=== PATIENT | male | born 1955 ===

== ENCOUNTER 2021-12-13 14:47 | Inpatient (IN) ==
[2021-12-13 16:07] LABS: Basophils % 0.4 %; Eosinophils # 0.2 K/mcL (0.0-0.6); Hematocrit 42.1 % (37.5-50.1); Hemoglobin 12.8 g/dL (12.9-16.9); Immature Granulocytes % 0.3 % (0-4); Lymphocytes % 13.2 %; Mean Corpuscular HGB Conc 30.4 g/dL (31.6-35.5); Mean Corpuscular Hemoglobin 25.7 pg (28.0-33.3); Mean Corpuscular Volume 84.5 fL (83.0-100.0); Mean Platelet Volume 10.6 fL (9.4-12.4); Monocytes % 12.6 %; Neutrophils # 5.5 K/mcL (1.6-8.9); Platelet Count 141 K/mcL (140-400); Red Blood Count 4.98 M/mcL (4.19-5.50); Red Cell Distribution Width 22.4 % (11.5-14.5); Segmented Neutrophils % 71.5 %; White Blood Count 7.7 K/mcL (4.3-11.1)
[2021-12-13 16:25] LABS: Calcium 8.6 mg/dL (8.6-10.3); Potassium 4.3 mEq/L (3.5-5.1)
[2021-12-13 18:41] LABS: INR 1.7; Prothrombin Time 18.9 Seconds (9.4-12.1)
[2021-12-13 18:44] LABS: Activated Partial Thrombo Time 46.4 Seconds (26.0-36.0)
[2021-12-13] MEDS ORDERED: Furosemide 20 MG/2 ML VIAL IVP ONE (21:08)
[2021-12-13] MEDS ORDERED: Naloxone 0.4 MG/ML INJ IVP PRN (21:27)
[2021-12-13] MEDS ORDERED: *HR* Dextrose 50 % in Water (Syg) 50 ML SYRINGE IVP PRN (21:38)
[2021-12-13] MEDS ORDERED: D5% in Water 1,000 ML IVC PRN (21:38)
[2021-12-13] MEDS ORDERED: Dextrose 4 GM Chewable Tablets PO PRN ×2 (21:38)
[2021-12-14] MEDS ORDERED: Furosemide 20 MG/2 ML VIAL IVP ONE (00:08)
[2021-12-14] MEDS: Insulin LISPRO 300 UNITS/3 ML VIAL SUBQ SCH ×4 (00:13→17:09)
[2021-12-14 02:18] LABS: Hematocrit 39.3 % (37.5-50.1); Hemoglobin 12.2 g/dL (12.9-16.9); Mean Corpuscular Volume 83.8 fL (83.0-100.0); Mean Platelet Volume 10.9 fL (9.4-12.4); Platelet Count 147 K/mcL (140-400); Red Blood Count 4.69 M/mcL (4.19-5.50)
[2021-12-14 02:23] LABS: INR 1.9; Prothrombin Time 21.1 Seconds (9.4-12.1)
[2021-12-14 02:39] LABS: Calcium 8.4 mg/dL (8.6-10.3); Potassium 4.6 mEq/L (3.5-5.1)
[2021-12-14] MEDS: Gabapentin 300 MG CAPSULE PO SCH ×3 (08:32→20:36)
[2021-12-14] MEDS: hydrALAZINE 25 MG TABLET PO SCH ×3 (08:33→20:36)
[2021-12-14] MEDS: amLODIPine 5 MG TABLET PO SCH (08:33)
[2021-12-14 08:48] LABS: Estimated Average Glucose 183 mg/dl
[2021-12-14] MEDS ORDERED: (Ezetimibe [Zetia] 10 MG Tablet) PO SCH (09:00)
[2021-12-14] MEDS ORDERED: Furosemide 40 MG/4 ML VIAL IVP SCH ×2 (09:00→17:00)
[2021-12-14] MEDS ORDERED: Metoprolol 100 MG TABLET PO SCH (09:00)
[2021-12-14 09:18] LABS: Magnesium 1.8 mg/dL (1.6-2.6)
[2021-12-14] MEDS: Isosorbide MONOnitrate (24 HR) 60 MG TAB.ER.24H PO SCH (12:40)
[2021-12-14] MEDS: Albumin 25% 25gram/100mL 25 GM/100 ML IV.SOLN IVPB SCH ×2 (12:41→20:35)
[2021-12-14 13:26] LABS: Bilirubin,Urine Negative (Negative); Blood,Urine Negative (Negative); Clarity,Urine Clear (Clear); Color,Urine Light-Yellow (Yellow); Glucose,Urine (UA) Normal (Normal); Hyaline Casts,Urine Few per lpf (None Seen); Ketones,Urine Negative (Negative); Leukocyte Esterase,Urine Negative (Negative); Nitrite,Urine Negative (Negative); PH,Urine 5.5 pH Units (5.0-8.0); Protein,Urine 50 mg/dL (Neg-Trace); RBC,Urine 0-3 per hpf (0-3); Specific Gravity,Urine 1.011 (1.010-1.025); Urobilinogen,Urine Normal (Normal)
[2021-12-14 13:32] LABS: Sodium, Urine 102.1 mEq/L
[2021-12-14] MEDS: Furosemide 240 MG in 0.9 % Sodium Chloride 96 ML IVC SCH (14:20)
[2021-12-14] MEDS ORDERED: *HR* Warfarin 5 MG TABLET PO ONE (18:00)
[2021-12-14] MEDS ORDERED: Warfarin perPT PO PRN (18:00)
[2021-12-14] MEDS: Metoprolol XL (24 HR) Succ 50 MG TAB.ER.24H PO SCH (20:36)
[2021-12-14] MEDS: Insulin DETEMIR 100 UNIT/ML X5UNITS SUBQ SCH (20:37)
[2021-12-14] MEDS ORDERED: NON-FORMULARY MEDICATION 1 EACH EACH (Metoprolol Succinate [Toprol Xl] 100 MG Tab.Er.24h) PO SCH (21:00)
[2021-12-15] MEDS: Albumin 25% 25gram/100mL 25 GM/100 ML IV.SOLN IVPB SCH ×3 (03:11→20:08)
[2021-12-15 05:36] LABS: Hemoglobin 11.9 g/dL (12.9-16.9); Immature Granulocytes % 0.3 % (0-4)
[2021-12-15 05:39] LABS: Basophils % 0.4 %; Eosinophils # 0.2 K/mcL (0.0-0.6); Eosinophils % 2.7 %; Hematocrit 38.9 % (37.5-50.1); Immature Platelets 6.7 % (1.1-6.1); Lymphocytes # 0.9 K/mcL (0.6-4.6); Mean Corpuscular HGB Conc 30.6 g/dL (31.6-35.5); Mean Corpuscular Hemoglobin 25.8 pg (28.0-33.3); Mean Corpuscular Volume 84.2 fL (83.0-100.0); Mean Platelet Volume 11.1 fL (9.4-12.4); Monocytes # 0.9 K/mcL (0.0-1.3); Monocytes % 13.5 %; Neutrophils # 4.8 K/mcL (1.6-8.9); Platelet Count 140 K/mcL (140-400); Red Blood Count 4.62 M/mcL (4.19-5.50); Red Cell Distribution Width 22.3 % (11.5-14.5); Segmented Neutrophils % 70.1 %; White Blood Count 6.9 K/mcL (4.3-11.1)
[2021-12-15 05:43] LABS: INR 1.8; Prothrombin Time 19.8 Seconds (9.4-12.1)
[2021-12-15 05:47] LABS: Magnesium 1.9 mg/dL (1.6-2.6); Phosphorous 4.5 mg/dL (2.7-4.5); Potassium 4.6 mEq/L (3.5-5.1)
[2021-12-15] MEDS: amLODIPine 5 MG TABLET PO SCH (08:54)
[2021-12-15] MEDS: Isosorbide MONOnitrate (24 HR) 60 MG TAB.ER.24H PO SCH (08:54)
[2021-12-15] MEDS: calcitrioL 0.25 MCG CAPSULE PO SCH (08:54)
[2021-12-15] MEDS: Gabapentin 300 MG CAPSULE PO SCH ×3 (08:54→20:38)
[2021-12-15] MEDS: hydrALAZINE 25 MG TABLET PO SCH ×3 (08:55→20:39)
[2021-12-15] MEDS: Insulin DETEMIR 100 UNIT/ML X5UNITS SUBQ SCH ×2 (08:55→20:38)
[2021-12-15] MEDS: Metoprolol XL (24 HR) Succ 50 MG TAB.ER.24H PO SCH ×2 (08:55→20:38)
[2021-12-15] MEDS: Insulin LISPRO 300 UNITS/3 ML VIAL SUBQ SCH ×3 (08:56→15:51)
[2021-12-15] MEDS ORDERED: metOLazone 5 MG TABLET PO SCH (09:00)
[2021-12-15] MEDS: Furosemide 240 MG in 0.9 % Sodium Chloride 96 ML IVC SCH (12:56)
[2021-12-15] MEDS ORDERED: *HR* Warfarin 5 MG TABLET PO ONE (18:00)
[2021-12-16 03:22] LABS: INR 1.9; Prothrombin Time 21.6 Seconds (9.4-12.1)
[2021-12-16 03:24] LABS: Basophils % 0.6 %; Eosinophils # 0.2 K/mcL (0.0-0.6); Eosinophils % 2.7 %; Hematocrit 37.6 % (37.5-50.1); Hemoglobin 11.6 g/dL (12.9-16.9); Immature Granulocytes % 0.3 % (0-4); Lymphocytes # 0.8 K/mcL (0.6-4.6); Lymphocytes % 11.7 %; Mean Corpuscular HGB Conc 30.9 g/dL (31.6-35.5); Mean Corpuscular Hemoglobin 26.3 pg (28.0-33.3); Mean Corpuscular Volume 85.3 fL (83.0-100.0); Mean Platelet Volume 10.3 fL (9.4-12.4); Monocytes # 0.8 K/mcL (0.0-1.3); Monocytes % 12.1 %; Neutrophils # 4.9 K/mcL (1.6-8.9); Platelet Count 116 K/mcL (140-400); Red Blood Count 4.41 M/mcL (4.19-5.50); Red Cell Distribution Width 21.8 % (11.5-14.5); Segmented Neutrophils % 72.6 %; White Blood Count 6.8 K/mcL (4.3-11.1)
[2021-12-16 03:33] LABS: Calcium 8.7 mg/dL (8.6-10.3); Magnesium 1.8 mg/dL (1.6-2.6); Phosphorous 4.6 mg/dL (2.7-4.5); Potassium 4.5 mEq/L (3.5-5.1)
[2021-12-16] MEDS: Albumin 25% 25gram/100mL 25 GM/100 ML IV.SOLN IVPB SCH (04:41)
[2021-12-16] MEDS: Insulin LISPRO 300 UNITS/3 ML VIAL SUBQ SCH ×3 (08:42→17:58)
[2021-12-16] MEDS: calcitrioL 0.25 MCG CAPSULE PO SCH (08:57)
[2021-12-16] MEDS: Metoprolol XL (24 HR) Succ 50 MG TAB.ER.24H PO SCH ×2 (08:57→20:01)
[2021-12-16] MEDS: amLODIPine 5 MG TABLET PO SCH (08:57)
[2021-12-16] MEDS: Gabapentin 300 MG CAPSULE PO SCH ×3 (08:58→22:23)
[2021-12-16] MEDS: hydrALAZINE 25 MG TABLET PO SCH ×3 (08:58→20:02)
[2021-12-16] MEDS: Isosorbide MONOnitrate (24 HR) 60 MG TAB.ER.24H PO SCH (08:58)
[2021-12-16] MEDS: Insulin DETEMIR 100 UNIT/ML X5UNITS SUBQ SCH ×2 (08:58→20:01)
[2021-12-16] MEDS: Furosemide 240 MG in 0.9 % Sodium Chloride 96 ML IVC SCH (15:07)
[2021-12-16] MEDS ORDERED: *HR* Warfarin 5 MG TABLET PO ONE (18:00)
[2021-12-17 03:09] LABS: Hematocrit 35.2 % (37.5-50.1); Hemoglobin 11.1 g/dL (12.9-16.9); Mean Corpuscular HGB Conc 31.5 g/dL (31.6-35.5); Mean Corpuscular Hemoglobin 26.6 pg (28.0-33.3); Mean Corpuscular Volume 84.4 fL (83.0-100.0); Mean Platelet Volume 10.7 fL (9.4-12.4); Platelet Count 124 K/mcL (140-400); Red Blood Count 4.17 M/mcL (4.19-5.50); Red Cell Distribution Width 21.5 % (11.5-14.5); White Blood Count 7.6 K/mcL (4.3-11.1)
[2021-12-17 03:17] LABS: INR 1.8; Prothrombin Time 19.6 Seconds (9.4-12.1)
[2021-12-17 03:31] LABS: Calcium 8.7 mg/dL (8.6-10.3); Magnesium 1.8 mg/dL (1.6-2.6); Phosphorous 5.3 mg/dL (2.7-4.5); Potassium 4.7 mEq/L (3.5-5.1)
[2021-12-17] MEDS: Insulin LISPRO 300 UNITS/3 ML VIAL SUBQ SCH ×3 (09:21→16:40)
[2021-12-17] MEDS: calcitrioL 0.25 MCG CAPSULE PO SCH (10:34)
[2021-12-17] MEDS: Isosorbide MONOnitrate (24 HR) 60 MG TAB.ER.24H PO SCH (10:34)
[2021-12-17] MEDS: amLODIPine 5 MG TABLET PO SCH (10:34)
[2021-12-17] MEDS: Gabapentin 300 MG CAPSULE PO SCH ×3 (10:34→20:23)
[2021-12-17] MEDS: Metoprolol XL (24 HR) Succ 50 MG TAB.ER.24H PO SCH ×2 (10:34→20:16)
[2021-12-17] MEDS: hydrALAZINE 25 MG TABLET PO SCH ×3 (10:34→20:16)
[2021-12-17] MEDS: Albumin 25% 25gram/100mL 25 GM/100 ML IV.SOLN IVPB SCH ×2 (10:35→16:50)
[2021-12-17] MEDS: Insulin DETEMIR 100 UNIT/ML X5UNITS SUBQ SCH ×2 (10:35→20:16)
[2021-12-17] MEDS: Furosemide 240 MG in 0.9 % Sodium Chloride 96 ML IVC SCH (14:08)
[2021-12-17] MEDS ORDERED: *HR* Warfarin 7.5 MG TABLET PO ONE (18:00)
[2021-12-18] MEDS: Albumin 25% 25gram/100mL 25 GM/100 ML IV.SOLN IVPB SCH ×3 (00:36→15:33)
[2021-12-18 01:58] LABS: Hematocrit 35.6 % (37.5-50.1); Hemoglobin 11.1 g/dL (12.9-16.9); Mean Corpuscular HGB Conc 31.2 g/dL (31.6-35.5); Mean Corpuscular Hemoglobin 26.5 pg (28.0-33.3); Mean Platelet Volume 11.2 fL (9.4-12.4); Platelet Count 121 K/mcL (140-400); Red Blood Count 4.19 M/mcL (4.19-5.50); Red Cell Distribution Width 21.4 % (11.5-14.5); White Blood Count 6.6 K/mcL (4.3-11.1)
[2021-12-18 02:11] LABS: INR 1.7
[2021-12-18 02:20] LABS: Calcium 8.7 mg/dL (8.6-10.3); Magnesium 1.9 mg/dL (1.6-2.6); Phosphorous 5.7 mg/dL (2.7-4.5); Potassium 4.8 mEq/L (3.5-5.1)
[2021-12-18] MEDS: calcitrioL 0.25 MCG CAPSULE PO SCH (07:53)
[2021-12-18] MEDS: Isosorbide MONOnitrate (24 HR) 60 MG TAB.ER.24H PO SCH (07:54)
[2021-12-18] MEDS: Metoprolol XL (24 HR) Succ 50 MG TAB.ER.24H PO SCH ×2 (07:54→21:12)
[2021-12-18] MEDS: amLODIPine 5 MG TABLET PO SCH (07:54)
[2021-12-18] MEDS: Gabapentin 300 MG CAPSULE PO SCH (07:55)
[2021-12-18] MEDS: Insulin LISPRO 300 UNITS/3 ML VIAL SUBQ SCH ×3 (07:55→15:58)
[2021-12-18] MEDS: hydrALAZINE 25 MG TABLET PO SCH ×3 (07:55→21:12)
[2021-12-18] MEDS: Insulin DETEMIR 100 UNIT/ML X5UNITS SUBQ SCH ×2 (08:50→21:12)
[2021-12-18] MEDS: Gabapentin 100 MG CAPSULE PO SCH ×2 (15:33→21:13)
[2021-12-18] MEDS ORDERED: *HR* Warfarin 7.5 MG TABLET PO ONE (18:00)
[2021-12-19] MEDS: Albumin 25% 25gram/100mL 25 GM/100 ML IV.SOLN IVPB SCH ×2 (00:59→08:46)
[2021-12-19] MEDS: Ondansetron 4 MG/2 ML VIAL IVP PRN ×2 (00:59→16:20)
[2021-12-19 04:33] LABS: ABG Base Excess -3 mEq/L (-2 to 3); ABG HCO3 24 mEq/L (21-27); ABG Oxygen Saturation 64 % (95-98); ABG PCO2 54 mmHg (35-45); ABG PH 7.26 pH Units (7.32-7.45); ABG PO2 39 mmHg (85-104); ABG TCO2 26 mEq/L (20-26)
[2021-12-19 06:58] LABS: Hemoglobin 10.8 g/dL (12.9-16.9); Mean Corpuscular Hemoglobin 25.8 pg (28.0-33.3); Mean Corpuscular Volume 86.1 fL (83.0-100.0); Mean Platelet Volume 11.7 fL (9.4-12.4); Platelet Count 141 K/mcL (140-400); Red Blood Count 4.18 M/mcL (4.19-5.50); Red Cell Distribution Width 21.3 % (11.5-14.5); White Blood Count 7.3 K/mcL (4.3-11.1)
[2021-12-19 07:04] LABS: Prothrombin Time 21.8 Seconds (9.4-12.1)
[2021-12-19 07:20] LABS: Phosphorous 6.1 mg/dL (2.7-4.5); Potassium 5.9 mEq/L (3.5-5.1)
[2021-12-19] MEDS ORDERED: Insulin Human Regular 10 UNIT in 0.9 % Sodium Chloride 10 ML IV ONE (07:26)
[2021-12-19] MEDS ORDERED: *HR* Dextrose 50 % in Water (Syg) 50 ML SYRINGE IVP ONE (07:45)
[2021-12-19] MEDS: SODIUM ZIRCONIUM CYCLOSILICATE 5 GM POWD.PACK PO SCH ×3 (08:45→20:49)
[2021-12-19] MEDS: Insulin DETEMIR 100 UNIT/ML X5UNITS SUBQ SCH ×2 (08:45→20:49)
[2021-12-19] MEDS: Insulin LISPRO 300 UNITS/3 ML VIAL SUBQ SCH ×3 (08:47→17:41)
[2021-12-19] MEDS: calcitrioL 0.25 MCG CAPSULE PO SCH (08:48)
[2021-12-19] MEDS: hydrALAZINE 25 MG TABLET PO SCH ×3 (08:49→20:49)
[2021-12-19] MEDS: Metoprolol XL (24 HR) Succ 50 MG TAB.ER.24H PO SCH ×2 (08:49→20:49)
[2021-12-19] MEDS: Isosorbide MONOnitrate (24 HR) 60 MG TAB.ER.24H PO SCH (08:50)
[2021-12-19] MEDS: Gabapentin 100 MG CAPSULE PO SCH ×3 (08:50→20:49)
[2021-12-19] MEDS: amLODIPine 5 MG TABLET PO SCH (08:50)
[2021-12-19 10:16] LABS: ABG Base Excess -3 mEq/L (-2 to 3); ABG HCO3 24 mEq/L (21-27); ABG Oxygen Saturation 91 % (95-98); ABG PCO2 53 mmHg (35-45); ABG PH 7.27 pH Units (7.32-7.45); ABG PO2 72 mmHg (85-104); ABG TCO2 26 mEq/L (20-26)
[2021-12-19] MEDS ORDERED: Heparin 1,000 UNITS/500 mL 500 ML ONE (13:58)
[2021-12-19] MEDS ORDERED: *HR* Heparin 10,000 UNIT/10 ML VIAL IV PRN ×2 (14:10)
[2021-12-19] MEDS ORDERED: 0.9 % Sodium Chloride 250 ML IVC PRN (14:10)
[2021-12-19] MEDS ORDERED: 0.9 % Sodium Chloride 1,000 ML PRIME SCH (14:15)
[2021-12-19] MEDS ORDERED: *HR* Heparin 5,000 UNIT/ML VIAL ONE (14:20)
[2021-12-19 17:09] LABS: Hepatitis B Surface Antibody < 3.10 mIU/mL
[2021-12-19 17:20] LABS: Hepatitis B Surface Antigen Nonreactive (Nonreactive)
[2021-12-19] MEDS ORDERED: *HR* Warfarin 5 MG TABLET PO ONE (18:00)
[2021-12-19] MEDS: Acetaminophen 325 MG TABLET PO PRN (20:56)
[2021-12-19] MEDS ORDERED: *HR* HYDROcodone/Acet 10/325 mg TABLET PO ONE (22:40)
[2021-12-20 04:43] LABS: Hematocrit 35.4 % (37.5-50.1); Hemoglobin 10.6 g/dL (12.9-16.9); Mean Corpuscular HGB Conc 29.9 g/dL (31.6-35.5); Mean Corpuscular Volume 86.8 fL (83.0-100.0); Mean Platelet Volume 10.9 fL (9.4-12.4); Platelet Count 119 K/mcL (140-400); Red Blood Count 4.08 M/mcL (4.19-5.50); Red Cell Distribution Width 21.1 % (11.5-14.5); White Blood Count 6.5 K/mcL (4.3-11.1)
[2021-12-20 04:51] LABS: Calcium 8.8 mg/dL (8.6-10.3); Potassium 5.1 mEq/L (3.5-5.1)
[2021-12-20 04:54] LABS: INR 2.6; Prothrombin Time 28.4 Seconds (9.4-12.1)
[2021-12-20] MEDS: Gabapentin 100 MG CAPSULE PO SCH ×3 (08:03→21:39)
[2021-12-20] MEDS: Isosorbide MONOnitrate (24 HR) 60 MG TAB.ER.24H PO SCH (08:03)
[2021-12-20] MEDS: hydrALAZINE 25 MG TABLET PO SCH ×3 (08:03→21:38)
[2021-12-20] MEDS: amLODIPine 5 MG TABLET PO SCH (08:03)
[2021-12-20] MEDS: calcitrioL 0.25 MCG CAPSULE PO SCH (08:10)
[2021-12-20] MEDS: Insulin DETEMIR 100 UNIT/ML X5UNITS SUBQ SCH ×2 (08:10→20:40)
[2021-12-20] MEDS: Metoprolol XL (24 HR) Succ 50 MG TAB.ER.24H PO SCH ×2 (08:10→21:39)
[2021-12-20] MEDS: Insulin LISPRO 300 UNITS/3 ML VIAL SUBQ SCH ×3 (08:11→17:09)
[2021-12-20] MEDS ORDERED: *HR* Heparin 10,000 UNIT/10 ML VIAL IV PRN ×2 (08:49)
[2021-12-20] MEDS ORDERED: 0.9 % Sodium Chloride 250 ML IVC PRN (08:49)
[2021-12-20 15:03] LABS: Albumin 4.6 g/dL (3.5-5.7)
[2021-12-20 17:25] LABS: RBC,Pleural Fluid 8000 RBC/mcL
[2021-12-20 17:28] LABS: Total Protein,Pleural Fluid 3.2 g/dL
[2021-12-20] MEDS ORDERED: *HR* Warfarin 2.5 MG TABLET PO ONE (18:00)
[2021-12-20 18:26] LABS: Appearance of Pleural Fl Cloudy (Clear)
[2021-12-20 18:30] LABS: Basophils,Pleural Fluid 0 %; Eosinophils,Pleural Fluid 0 %
[2021-12-21 06:47] LABS: Hematocrit 35.8 % (37.5-50.1); Hemoglobin 10.9 g/dL (12.9-16.9); Mean Corpuscular HGB Conc 30.4 g/dL (31.6-35.5); Mean Corpuscular Volume 85.2 fL (83.0-100.0); Mean Platelet Volume 11.3 fL (9.4-12.4); Platelet Count 117 K/mcL (140-400); Red Cell Distribution Width 20.9 % (11.5-14.5); White Blood Count 6.5 K/mcL (4.3-11.1)
[2021-12-21 06:54] LABS: INR 2.5; Prothrombin Time 27.5 Seconds (9.4-12.1)
[2021-12-21 07:21] LABS: BUN/Creatinine Ratio 16 (6-26); Blood Urea Nitrogen 70 mg/dL (8-23); Calcium 8.9 mg/dL (8.6-10.3); Carbon Dioxide 29 mEq/L (23-29); Chloride 98 mEq/L (98-107); Glucose 101 mg/dL (70-105); Osmolality,Calculated 309 (280-300); Potassium 4.1 mEq/L (3.5-5.1); Sodium 139 mEq/L (136-145); eGFR For African Americans 16 (> 60); eGFR For Non-African Americans 14 (> 60)
[2021-12-21] MEDS ORDERED: 0.9 % Sodium Chloride 250 ML IVC PRN (08:38)
[2021-12-21] MEDS ORDERED: *HR* Heparin 10,000 UNIT/10 ML VIAL IV PRN ×2 (08:38)
[2021-12-21] MEDS: Insulin LISPRO 300 UNITS/3 ML VIAL SUBQ SCH ×3 (08:46→16:07)
[2021-12-21] MEDS: calcitrioL 0.25 MCG CAPSULE PO SCH (09:16)
[2021-12-21] MEDS: Insulin DETEMIR 100 UNIT/ML X5UNITS SUBQ SCH ×2 (09:17→20:37)
[2021-12-21] MEDS: Gabapentin 100 MG CAPSULE PO SCH ×4 (09:17→20:37)
[2021-12-21 09:57] LABS: Lactate Dehydrogenase 130 Units/L (140-271); Total Protein 6.7 g/dL (6.4-8.9)
[2021-12-21] MEDS ORDERED: Sennosides/Docusate Sodium TABLET PO PRN (10:28)
[2021-12-21] MEDS: hydrALAZINE 25 MG TABLET PO SCH ×3 (14:59→20:37)
[2021-12-21] MEDS: Metoprolol XL (24 HR) Succ 50 MG TAB.ER.24H PO SCH ×2 (14:59→20:37)
[2021-12-21] MEDS: amLODIPine 5 MG TABLET PO SCH (14:59)
[2021-12-21] MEDS: Isosorbide MONOnitrate (24 HR) 60 MG TAB.ER.24H PO SCH (14:59)
[2021-12-21] MEDS ORDERED: *HR* Warfarin 5 MG TABLET PO ONE (18:00)
[2021-12-21] MEDS: Ondansetron 4 MG/2 ML VIAL IVP PRN (21:29)
[2021-12-21] MEDS ORDERED: Prochlorperazine 10 MG/2 ML VIAL IVP ONE (23:05)
[2021-12-22 02:00] LABS: Prothrombin Time 22.1 Seconds (9.4-12.1)
[2021-12-22 02:07] LABS: Calcium 8.8 mg/dL (8.6-10.3); Phosphorous 4.2 mg/dL (2.7-4.5); Potassium 4.2 mEq/L (3.5-5.1)
[2021-12-22] MEDS: Insulin LISPRO 300 UNITS/3 ML VIAL SUBQ SCH ×3 (07:45→17:06)
[2021-12-22] MEDS: amLODIPine 5 MG TABLET PO SCH (08:53)
[2021-12-22] MEDS: Gabapentin 100 MG CAPSULE PO SCH ×3 (08:53→21:20)
[2021-12-22] MEDS: hydrALAZINE 25 MG TABLET PO SCH ×3 (08:53→21:20)
[2021-12-22] MEDS: calcitrioL 0.25 MCG CAPSULE PO SCH (08:54)
[2021-12-22] MEDS: Metoprolol XL (24 HR) Succ 50 MG TAB.ER.24H PO SCH ×2 (08:54→21:20)
[2021-12-22] MEDS: Isosorbide MONOnitrate (24 HR) 60 MG TAB.ER.24H PO SCH (08:54)
[2021-12-22] MEDS: Insulin DETEMIR 100 UNIT/ML X5UNITS SUBQ SCH ×2 (08:56→21:20)
[2021-12-22] MEDS ORDERED: *HR* Warfarin 5 MG TABLET PO ONE (18:00)
[2021-12-22 23:49] LABS: Fluid Source for Cholesterol PLEURAL FLUID; Fluid Source for Triglycerides PLEURAL FLUID
[2021-12-23 00:14] LABS: Fluid Source for Albumin PLEURAL FLUID
[2021-12-23 04:33] LABS: INR 1.9; Prothrombin Time 20.6 Seconds (9.4-12.1)
[2021-12-23 04:38] LABS: Magnesium 1.8 mg/dL (1.6-2.6); Phosphorous 5.6 mg/dL (2.7-4.5)
[2021-12-23 06:36] LABS: Calcium 9.2 mg/dL (8.6-10.3); Potassium 4.6 mEq/L (3.5-5.1)
[2021-12-23] MEDS: Gabapentin 100 MG CAPSULE PO SCH ×3 (08:18→20:04)
[2021-12-23] MEDS: Insulin DETEMIR 100 UNIT/ML X5UNITS SUBQ SCH ×2 (08:18→20:19)
[2021-12-23] MEDS: Metoprolol XL (24 HR) Succ 50 MG TAB.ER.24H PO SCH ×2 (08:18→20:04)
[2021-12-23] MEDS: calcitrioL 0.25 MCG CAPSULE PO SCH (08:18)
[2021-12-23] MEDS: Insulin LISPRO 300 UNITS/3 ML VIAL SUBQ SCH ×4 (08:19→21:07)
[2021-12-23] MEDS ORDERED: *HR* Heparin 10,000 UNIT/10 ML VIAL IV PRN ×2 (08:35)
[2021-12-23] MEDS ORDERED: Albumin 25% 25gram/100mL 25 GM/100 ML IV.SOLN IVPB PRN (08:35)
[2021-12-23] MEDS ORDERED: 0.9 % Sodium Chloride 250 ML IVC PRN (08:35)
[2021-12-23] MEDS ORDERED: *HR* Heparin 5,000 UNIT/ML VIAL IVP ONE (10:08)
[2021-12-23] MEDS ORDERED: *HR* Heparin 5,000 UNIT/ML VIAL IVP PRN (10:08)
[2021-12-23] MEDS: Isosorbide MONOnitrate (24 HR) 60 MG TAB.ER.24H PO SCH (10:36)
[2021-12-23] MEDS: hydrALAZINE 25 MG TABLET PO SCH ×3 (10:36→20:04)
[2021-12-23] MEDS: amLODIPine 5 MG TABLET PO SCH (10:37)
[2021-12-23] MEDS: Heparin 25,000UNIT/250ML 1/2NS 25,000 UNIT/250 ML IV.SOLN IVC SCH (11:15)
[2021-12-23 11:55] LABS: INR 1.9; Prothrombin Time 20.8 Seconds (9.4-12.1)
[2021-12-23 11:57] LABS: Heparin anti-factor XA UFH < 0.04 IU/mL (0.30-0.70)
[2021-12-23 12:26] LABS: Hematocrit 35.6 % (37.5-50.1); Hemoglobin 11.1 g/dL (12.9-16.9); Mean Corpuscular HGB Conc 31.2 g/dL (31.6-35.5); Mean Corpuscular Hemoglobin 26.2 pg (28.0-33.3); Mean Corpuscular Volume 84.2 fL (83.0-100.0); Mean Platelet Volume 11.4 fL (9.4-12.4); Platelet Count 110 K/mcL (140-400); Red Blood Count 4.23 M/mcL (4.19-5.50); Red Cell Distribution Width 20.3 % (11.5-14.5); White Blood Count 8.6 K/mcL (4.3-11.1)
[2021-12-23 14:24] LABS: Cholesterol,Body Fluid 33 mg/dL; Triglycerides,Body Fluid 102 mg/dL
[2021-12-23] MEDS ORDERED: *HR* Warfarin 3 MG TABLET PO ONE (18:00)
[2021-12-23] MEDS ORDERED: *HR* Dextrose 50 % in Water (Syg) 50 ML SYRINGE IVP PRN (20:25)
[2021-12-23] MEDS ORDERED: Dextrose 4 GM Chewable Tablets PO PRN ×2 (20:25)
[2021-12-23] MEDS ORDERED: D5% in Water 1,000 ML IVC PRN (20:25)
[2021-12-24 04:38] LABS: INR 1.8; Prothrombin Time 20.4 Seconds (9.4-12.1)
[2021-12-24 04:42] LABS: Calcium 9.4 mg/dL (8.6-10.3); Potassium 4.4 mEq/L (3.5-5.1)
[2021-12-24] MEDS: calcitrioL 0.25 MCG CAPSULE PO SCH (08:54)
[2021-12-24] MEDS: Metoprolol XL (24 HR) Succ 50 MG TAB.ER.24H PO SCH ×2 (08:54→20:45)
[2021-12-24] MEDS: amLODIPine 5 MG TABLET PO SCH (08:54)
[2021-12-24] MEDS: Isosorbide MONOnitrate (24 HR) 60 MG TAB.ER.24H PO SCH (08:54)
[2021-12-24] MEDS: Insulin DETEMIR 100 UNIT/ML X5UNITS SUBQ SCH ×2 (08:54→20:39)
[2021-12-24] MEDS: hydrALAZINE 25 MG TABLET PO SCH ×3 (08:54→20:40)
[2021-12-24] MEDS: Gabapentin 100 MG CAPSULE PO SCH ×3 (08:54→20:45)
[2021-12-24] MEDS: Insulin LISPRO 300 UNITS/3 ML VIAL SUBQ SCH ×4 (11:05→20:38)
[2021-12-24] MEDS: Heparin 25,000UNIT/250ML 1/2NS 25,000 UNIT/250 ML IV.SOLN IVC SCH (13:18)
[2021-12-25 04:56] LABS: Hemoglobin 10.7 g/dL (12.9-16.9); Mean Corpuscular Volume 84.3 fL (83.0-100.0); Red Cell Distribution Width 20.4 % (11.5-14.5)
[2021-12-25 04:57] LABS: Hematocrit 34.3 % (37.5-50.1); Immature Platelets 10.8 % (1.1-6.1); Mean Corpuscular HGB Conc 31.2 g/dL (31.6-35.5); Mean Corpuscular Hemoglobin 26.3 pg (28.0-33.3); Red Blood Count 4.07 M/mcL (4.19-5.50); White Blood Count 8.9 K/mcL (4.3-11.1)
[2021-12-25] MEDS: Heparin 25,000UNIT/250ML 1/2NS 25,000 UNIT/250 ML IV.SOLN IVC SCH (05:00)
[2021-12-25 05:04] LABS: INR 1.4; Prothrombin Time 16.1 Seconds (9.4-12.1)
[2021-12-25 05:16] LABS: Albumin 4.4 g/dL (3.5-5.7); Albumin/Globulin Ratio 1.5 (1.1-2.2); Bilirubin,Total 1.2 mg/dL (0.3-1.0); Calcium 9.5 mg/dL (8.6-10.3); Globulin 2.9 g/dL (2.4-3.5); Magnesium 1.8 mg/dL (1.6-2.6); Potassium 4.8 mEq/L (3.5-5.1); Total Protein 7.3 g/dL (6.4-8.9)
[2021-12-25] MEDS: amLODIPine 5 MG TABLET PO SCH (07:54)
[2021-12-25] MEDS: Metoprolol XL (24 HR) Succ 50 MG TAB.ER.24H PO SCH ×2 (07:54→20:45)
[2021-12-25] MEDS: calcitrioL 0.25 MCG CAPSULE PO SCH (07:55)
[2021-12-25] MEDS: Isosorbide MONOnitrate (24 HR) 60 MG TAB.ER.24H PO SCH (07:55)
[2021-12-25] MEDS: hydrALAZINE 25 MG TABLET PO SCH ×3 (07:55→20:45)
[2021-12-25] MEDS: Gabapentin 100 MG CAPSULE PO SCH ×3 (07:57→20:19)
[2021-12-25] MEDS: Insulin DETEMIR 100 UNIT/ML X5UNITS SUBQ SCH ×2 (07:57→20:45)
[2021-12-25] MEDS ORDERED: 0.9 % Sodium Chloride 250 ML IVC PRN (07:59)
[2021-12-25] MEDS ORDERED: *HR* Heparin 10,000 UNIT/10 ML VIAL IV PRN (07:59)
[2021-12-25] MEDS ORDERED: 0.9 % Sodium Chloride 1,000 ML PRIME SCH (08:00)
[2021-12-25] MEDS: Insulin LISPRO 300 UNITS/3 ML VIAL SUBQ SCH ×4 (08:10→20:45)
[2021-12-25] MEDS: *HR* Heparin 5,000 UNIT/ML VIAL IVP PRN (18:10)
[2021-12-26 01:02] LABS: Heparin anti-factor XA UFH 0.52 IU/mL (0.30-0.70)
[2021-12-26 02:59] LABS: Calcium 9.3 mg/dL (8.6-10.3); Potassium 4.3 mEq/L (3.5-5.1)
[2021-12-26] MEDS: Heparin 25,000UNIT/250ML 1/2NS 25,000 UNIT/250 ML IV.SOLN IVC SCH ×2 (03:12→20:42)
[2021-12-26 03:15] LABS: Hematocrit 33.5 % (37.5-50.1); Hemoglobin 10.2 g/dL (12.9-16.9); Mean Corpuscular HGB Conc 30.4 g/dL (31.6-35.5); Mean Corpuscular Volume 85.2 fL (83.0-100.0); Platelet Count 101 K/mcL (140-400); Red Blood Count 3.93 M/mcL (4.19-5.50); Red Cell Distribution Width 20.1 % (11.5-14.5); White Blood Count 7.8 K/mcL (4.3-11.1)
[2021-12-26 03:39] LABS: INR 1.4; Prothrombin Time 15.5 Seconds (9.4-12.1)
[2021-12-26] MEDS: Insulin LISPRO 300 UNITS/3 ML VIAL SUBQ SCH ×4 (07:19→19:09)
[2021-12-26] MEDS: Isosorbide MONOnitrate (24 HR) 60 MG TAB.ER.24H PO SCH (07:53)
[2021-12-26] MEDS: amLODIPine 5 MG TABLET PO SCH (07:53)
[2021-12-26] MEDS: hydrALAZINE 25 MG TABLET PO SCH ×3 (07:53→19:08)
[2021-12-26] MEDS: calcitrioL 0.25 MCG CAPSULE PO SCH (07:53)
[2021-12-26] MEDS: Metoprolol XL (24 HR) Succ 50 MG TAB.ER.24H PO SCH ×2 (07:53→19:07)
[2021-12-26] MEDS: Gabapentin 100 MG CAPSULE PO SCH ×3 (07:54→19:08)
[2021-12-26] MEDS: Insulin DETEMIR 100 UNIT/ML X5UNITS SUBQ SCH ×2 (07:57→19:08)
[2021-12-27] MEDS ORDERED: Ipratropium/Albuterol Neb 3 ML IH ONE (01:25)
[2021-12-27] MEDS: Saline Nasal Spray 44 ML BOTTLE NS PRN ×3 (02:15→09:05)
[2021-12-27 03:41] LABS: Hematocrit 33.9 % (37.5-50.1); Hemoglobin 10.6 g/dL (12.9-16.9); Immature Platelets 11.5 % (1.1-6.1); Mean Corpuscular HGB Conc 31.3 g/dL (31.6-35.5); Mean Corpuscular Hemoglobin 26.3 pg (28.0-33.3); Mean Corpuscular Volume 84.1 fL (83.0-100.0); Mean Platelet Volume 11.2 fL (9.4-12.4); Red Blood Count 4.03 M/mcL (4.19-5.50); Red Cell Distribution Width 19.9 % (11.5-14.5); White Blood Count 8.5 K/mcL (4.3-11.1)
[2021-12-27 04:01] LABS: Calcium 9.8 mg/dL (8.6-10.3)
[2021-12-27] MEDS ORDERED: 0.9 % Sodium Chloride 250 ML IVC PRN (06:57)
[2021-12-27] MEDS: Insulin LISPRO 300 UNITS/3 ML VIAL SUBQ SCH ×4 (07:18→20:19)
[2021-12-27] MEDS ORDERED: *HR* Heparin 10,000 UNIT/10 ML VIAL IV PRN (08:15)
[2021-12-27] MEDS: Isosorbide MONOnitrate (24 HR) 60 MG TAB.ER.24H PO SCH (09:02)
[2021-12-27] MEDS: calcitrioL 0.25 MCG CAPSULE PO SCH (09:02)
[2021-12-27] MEDS: Metoprolol XL (24 HR) Succ 50 MG TAB.ER.24H PO SCH ×2 (09:02→20:28)
[2021-12-27] MEDS: Gabapentin 100 MG CAPSULE PO SCH ×3 (09:03→20:20)
[2021-12-27] MEDS: Insulin DETEMIR 100 UNIT/ML X5UNITS SUBQ SCH ×2 (09:03→20:28)
[2021-12-27] MEDS: hydrALAZINE 25 MG TABLET PO SCH ×3 (09:03→20:28)
[2021-12-27] MEDS: Heparin 25,000UNIT/250ML 1/2NS 25,000 UNIT/250 ML IV.SOLN IVC SCH ×2 (09:31→16:25)
[2021-12-27] MEDS: amLODIPine 5 MG TABLET PO SCH (13:51)
[2021-12-27] MEDS: *HR* Heparin 5,000 UNIT/ML VIAL IVP PRN (17:12)
[2021-12-28 06:22] LABS: Hematocrit 33.3 % (37.5-50.1); Hemoglobin 10.5 g/dL (12.9-16.9); Mean Corpuscular HGB Conc 31.5 g/dL (31.6-35.5); Mean Corpuscular Hemoglobin 26.5 pg (28.0-33.3); Mean Corpuscular Volume 84.1 fL (83.0-100.0); Mean Platelet Volume 11.2 fL (9.4-12.4); Platelet Count 105 K/mcL (140-400); Red Blood Count 3.96 M/mcL (4.19-5.50); Red Cell Distribution Width 19.8 % (11.5-14.5); White Blood Count 8.4 K/mcL (4.3-11.1)
[2021-12-28] MEDS: Insulin DETEMIR 100 UNIT/ML X5UNITS SUBQ SCH (08:05)
[2021-12-28] MEDS: Insulin LISPRO 300 UNITS/3 ML VIAL SUBQ SCH ×4 (08:05→20:50)
[2021-12-28] MEDS: hydrALAZINE 25 MG TABLET PO SCH ×3 (08:05→20:50)
[2021-12-28] MEDS: amLODIPine 5 MG TABLET PO SCH ×2 (08:05→13:53)
[2021-12-28] MEDS: Gabapentin 100 MG CAPSULE PO SCH ×4 (08:25→20:51)
[2021-12-28] MEDS: Isosorbide MONOnitrate (24 HR) 60 MG TAB.ER.24H PO SCH (08:25)
[2021-12-28] MEDS: calcitrioL 0.25 MCG CAPSULE PO SCH (08:25)
[2021-12-28] MEDS: Metoprolol XL (24 HR) Succ 50 MG TAB.ER.24H PO SCH ×2 (08:25→20:50)
[2021-12-28 09:06] LABS: Calcium 9.4 mg/dL (8.6-10.3)
[2021-12-28] MEDS: Heparin 25,000UNIT/250ML 1/2NS 25,000 UNIT/250 ML IV.SOLN IVC SCH (18:25)
[2021-12-29] MEDS ORDERED: 0.9 % Sodium Chloride 250 ML IVC PRN (06:46)
[2021-12-29 07:00] LABS: Immature Granulocytes % 0.6 % (0-4); Red Cell Distribution Width 19.9 % (11.5-14.5)
[2021-12-29 07:02] LABS: Basophils % 0.5 %; Eosinophils # 0.2 K/mcL (0.0-0.6); Hematocrit 35.5 % (37.5-50.1); Lymphocytes # 0.9 K/mcL (0.6-4.6); Lymphocytes % 10.7 %; Mean Corpuscular Hemoglobin 26.5 pg (28.0-33.3); Mean Corpuscular Volume 85.5 fL (83.0-100.0); Mean Platelet Volume 12.4 fL (9.4-12.4); Neutrophils # 6.6 K/mcL (1.6-8.9); Platelet Count 108 K/mcL (140-400); Red Blood Count 4.15 M/mcL (4.19-5.50); Segmented Neutrophils % 75.2 %; White Blood Count 8.8 K/mcL (4.3-11.1)
[2021-12-29] MEDS: *HR* Heparin 5,000 UNIT/ML VIAL IVP PRN (08:33)
[2021-12-29] MEDS: hydrALAZINE 25 MG TABLET PO SCH ×3 (08:33→21:17)
[2021-12-29] MEDS: Isosorbide MONOnitrate (24 HR) 60 MG TAB.ER.24H PO SCH (08:33)
[2021-12-29] MEDS: amLODIPine 5 MG TABLET PO SCH (08:33)
[2021-12-29] MEDS: calcitrioL 0.25 MCG CAPSULE PO SCH (08:33)
[2021-12-29] MEDS: Metoprolol XL (24 HR) Succ 50 MG TAB.ER.24H PO SCH ×2 (08:33→21:17)
[2021-12-29] MEDS: Gabapentin 100 MG CAPSULE PO SCH ×3 (08:33→21:17)
[2021-12-29] MEDS: Insulin LISPRO 300 UNITS/3 ML VIAL SUBQ SCH ×4 (08:36→21:18)
[2021-12-29] MEDS: Insulin DETEMIR 100 UNIT/ML X5UNITS SUBQ SCH ×2 (08:39→21:17)
[2021-12-29 08:52] LABS: Calcium 9.6 mg/dL (8.6-10.3); Potassium 4.7 mEq/L (3.5-5.1)
[2021-12-29] MEDS ORDERED: *HR* Heparin 10,000 UNIT/10 ML VIAL IV PRN (08:56)
[2021-12-29] MEDS ORDERED: Heparin 1,000 UNITS/500 mL 500 ML ONE (15:02)
[2021-12-29] MEDS ORDERED: *HR* Heparin 5,000 UNIT/ML VIAL ONE (15:17)
[2021-12-29] MEDS: Heparin 25,000UNIT/250ML 1/2NS 25,000 UNIT/250 ML IV.SOLN IVC SCH (15:56)
[2021-12-29] MEDS: *HR* Warfarin 5 MG TABLET PO SCH (16:59)
[2021-12-29] MEDS: Acetaminophen 325 MG TABLET PO PRN (21:21)
[2021-12-30 01:58] LABS: Hematocrit 32.8 % (37.5-50.1); Mean Corpuscular Volume 85.2 fL (83.0-100.0); Red Blood Count 3.85 M/mcL (4.19-5.50); Red Cell Distribution Width 19.8 % (11.5-14.5)
[2021-12-30 01:59] LABS: Hemoglobin 10.4 g/dL (12.9-16.9); Immature Platelets 12.1 % (1.1-6.1); Mean Corpuscular HGB Conc 31.7 g/dL (31.6-35.5); Mean Platelet Volume 11.5 fL (9.4-12.4); White Blood Count 7.5 K/mcL (4.3-11.1)
[2021-12-30 02:11] LABS: Calcium 9.6 mg/dL (8.6-10.3); Potassium 4.3 mEq/L (3.5-5.1)
[2021-12-30] MEDS: Insulin LISPRO 300 UNITS/3 ML VIAL SUBQ SCH ×4 (07:37→21:09)
[2021-12-30 08:49] LABS: INR 1.2; Prothrombin Time 13.5 Seconds (9.4-12.1)
[2021-12-30] MEDS: amLODIPine 5 MG TABLET PO SCH (09:14)
[2021-12-30] MEDS: calcitrioL 0.25 MCG CAPSULE PO SCH (09:14)
[2021-12-30] MEDS: Gabapentin 100 MG CAPSULE PO SCH ×3 (09:15→21:08)
[2021-12-30] MEDS: Insulin DETEMIR 100 UNIT/ML X5UNITS SUBQ SCH ×2 (09:15→21:08)
[2021-12-30] MEDS: hydrALAZINE 25 MG TABLET PO SCH ×3 (09:15→21:08)
[2021-12-30] MEDS: Metoprolol XL (24 HR) Succ 50 MG TAB.ER.24H PO SCH ×2 (09:15→21:08)
[2021-12-30] MEDS: Isosorbide MONOnitrate (24 HR) 60 MG TAB.ER.24H PO SCH (09:15)
[2021-12-30] MEDS ORDERED: 0.9 % Sodium Chloride 250 ML IVC PRN (09:25)
[2021-12-30] MEDS ORDERED: *HR* Heparin 10,000 UNIT/10 ML VIAL IV PRN (09:30)
[2021-12-30] MEDS ORDERED: 0.9 % Sodium Chloride 1,000 ML PRIME SCH (09:30)
[2021-12-30] MEDS: *HR* Warfarin 5 MG TABLET PO SCH (16:57)
[2021-12-31 01:45] LABS: Red Cell Distribution Width 19.9 % (11.5-14.5)
[2021-12-31 01:47] LABS: Hematocrit 34.7 % (37.5-50.1); Hemoglobin 10.8 g/dL (12.9-16.9); Immature Platelets 9.3 % (1.1-6.1); Mean Corpuscular HGB Conc 31.1 g/dL (31.6-35.5); Mean Corpuscular Hemoglobin 26.7 pg (28.0-33.3); Mean Corpuscular Volume 85.9 fL (83.0-100.0); Mean Platelet Volume 10.7 fL (9.4-12.4); Red Blood Count 4.04 M/mcL (4.19-5.50); White Blood Count 8.5 K/mcL (4.3-11.1)
[2021-12-31 02:09] LABS: Calcium 9.8 mg/dL (8.6-10.3)
[2021-12-31] MEDS: Metoprolol XL (24 HR) Succ 50 MG TAB.ER.24H PO SCH (09:23)
[2021-12-31] MEDS: Insulin LISPRO 300 UNITS/3 ML VIAL SUBQ SCH ×2 (09:23→12:13)
[2021-12-31] MEDS: calcitrioL 0.25 MCG CAPSULE PO SCH (09:23)
[2021-12-31] MEDS: amLODIPine 5 MG TABLET PO SCH (09:24)
[2021-12-31] MEDS: Isosorbide MONOnitrate (24 HR) 60 MG TAB.ER.24H PO SCH (09:24)
[2021-12-31] MEDS: hydrALAZINE 25 MG TABLET PO SCH (09:24)
[2021-12-31] MEDS: Gabapentin 100 MG CAPSULE PO SCH (09:26)
[2021-12-31] MEDS: Insulin DETEMIR 100 UNIT/ML X5UNITS SUBQ SCH (09:27)
[2021-12-31 11:48] VITALS: BP 158/76; PULSE 87; TEMP 97.4
[2021-12-31 12:09] VITALS: O2SAT 90
== END 2021-12-31 15:00 | disposition home or self-care (01) | DRG 291 ==
LOC: EMEROOARM 14:47 → 3BNU 14:47 → SUATTDRO 21:30 → 3BNU 22:15 → SUATTDRO 12-15 12:15 → 2ANU 12-15 14:48
PROVIDERS: ADMIT Internal Medicine; ATTEND Family Medicine
PROC: IRPERMA (2021-12-29 12:00)

== ENCOUNTER 2022-06-13 19:00 | Observation (INO) ==
[2022-06-13] MEDS ORDERED: 0.9 % Sodium Chloride 1,000 ML IVC ONE (19:25)
[2022-06-13 19:46] LABS: Basophils % 0.7 %
[2022-06-13 19:48] LABS: Basophils # 0.1 K/mcL (0.0-0.2); Eosinophils # 0.1 K/mcL (0.0-0.6); Eosinophils % 1.7 %; Hematocrit 50.3 % (37.5-50.1); Hemoglobin 15.5 g/dL (12.9-16.9); Immature Granulocytes % 0.3 % (0-4); Lymphocytes # 0.9 K/mcL (0.6-4.6); Lymphocytes % 13.1 %; Mean Corpuscular HGB Conc 30.8 g/dL (31.6-35.5); Mean Corpuscular Hemoglobin 27.2 pg (28.0-33.3); Mean Corpuscular Volume 88.4 fL (83.0-100.0); Mean Platelet Volume 10.4 fL (9.4-12.4); Monocytes # 0.7 K/mcL (0.0-1.3); Monocytes % 10.2 %; Neutrophils # 5.3 K/mcL (1.6-8.9); Platelet Count 123 K/mcL (140-400); Red Blood Count 5.69 M/mcL (4.19-5.50); Red Cell Distribution Width 21.9 % (11.5-14.5); White Blood Count 7.1 K/mcL (4.3-11.1)
[2022-06-13 19:53] LABS: Prothrombin Time 22.1 Seconds (9.4-12.1)
[2022-06-13 19:56] LABS: Activated Partial Thrombo Time 45.7 Seconds (26.0-36.0)
[2022-06-13 20:22] LABS: Polychromasia 1+ (Not Present)
[2022-06-13 20:32] LABS: ABG Base Excess 1 mEq/L (-2 to 3); ABG HCO3 27 mEq/L (21-27); ABG Oxygen Saturation 92 % (95-98); ABG PCO2 45 mmHg (35-45); ABG PH 7.38 pH Units (7.32-7.45); ABG PO2 65 mmHg (85-104); ABG TCO2 28 mEq/L (20-26)
[2022-06-13 20:35] LABS: Influenza A PCR Negative (Negative); Influenza B PCR Negative (Negative); Resp. Syncytial Virus PCR Negative (Negative)
[2022-06-13 20:43] LABS: Alanine Aminotransferase 26 Units/L (7-52); Albumin 3.8 g/dL (3.5-5.7); Albumin/Globulin Ratio 0.9 (1.1-2.2); Alkaline Phosphatase 279 Units/L (34-104); Aspartate Amino Transferase 51 Units/L (13-39); BUN/Creatinine Ratio 14 (6-26); Bilirubin,Direct 0.2 mg/dL (0.0-0.2); Bilirubin,Indirect 0.8 mg/dL (0.0-1.0); Blood Urea Nitrogen 48 mg/dL (8-23); Carbon Dioxide 15 mEq/L (23-29); Chloride 107 mEq/L (98-107); Glucose 77 mg/dL (70-105); Magnesium 2.2 mg/dL (1.6-2.6); Osmolality,Calculated 297 (280-300); Potassium 5.4 mEq/L (3.5-5.1); Sodium 138 mEq/L (136-145); Total Protein 7.9 g/dL (6.4-8.9)
[2022-06-13 20:44] LABS: Creatine Kinase 52 Units/L (30-223); Ethanol < 10 mg/dL (Less than 10); Globulin 4.1 g/dL (2.4-3.5); Thyroid Stimulating Hormone 4.572 mcIU/mL (0.340-5.600); Troponin I 0.03 ng/mL (< 0.04)
[2022-06-13 20:47] LABS: Bilirubin,Urine Negative (Negative); Blood,Urine Negative (Negative); Clarity,Urine Clear (Clear); Color,Urine Light-Yellow (Yellow); Glucose,Urine (UA) 30 mg/dL (Normal); Ketones,Urine Negative (Negative); Leukocyte Esterase,Urine Negative (Negative); Mucus,Urine Few per lpf (None-Few); Nitrite,Urine Negative (Negative); PH,Urine 6.5 pH Units (5.0-8.0); Protein,Urine >=300 mg/dL (Neg-Trace); RBC,Urine 0-3 per hpf (0-3); Specific Gravity,Urine 1.014 (1.010-1.025); Squamous Epithelial Cell,Urine Few per hpf (None-Few); Urobilinogen,Urine Normal (Normal); WBC,Urine 0-3 per hpf (0-3)
[2022-06-13 20:48] LABS: SARS-CoV-2 by PCR (In House) Negative (Negative)
[2022-06-13 21:00] LABS: Amphetamine Screen,Urine Negative ng/mL (Cutoff=1000); Barbiturate Screen,Urine Negative ng/mL (Cutoff=200); Benzodiazepines Screen,Urine Negative ng/mL (Cutoff=200); Cannabinoid Screen,Urine Negative ng/mL (Cutoff = 50); Cocaine Screen,Urine Negative ng/mL (Cutoff= 300); Opiate Screen,Urine Negative ng/mL (Cutoff=300); Phencyclidine Screen,Urine Negative ng/mL (Cutoff=25)
[2022-06-13] MEDS ORDERED: *HR* Dextrose 50 % in Water (Syg) 50 ML SYRINGE ONE (22:50)
[2022-06-13] MEDS: *HR* Dextrose 50 % in Water (Syg) 50 ML SYRINGE IVP ONE ×2 (22:55→22:58)
[2022-06-13] MEDS ORDERED: Ondansetron 4 MG/2 ML VIAL IVP PRN (23:41)
[2022-06-13] MEDS ORDERED: Naloxone 0.4 MG/ML INJ IVP PRN (23:41)
[2022-06-13] MEDS ORDERED: Dextrose Gel 15 GM/37.5 ML TUBE PO PRN ×2 (23:56)
[2022-06-13] MEDS ORDERED: *HR* Dextrose 50 % in Water (Syg) 50 ML SYRINGE IVP PRN (23:56)
[2022-06-13] MEDS ORDERED: D5% in Water 1,000 ML IVC PRN (23:56)
[2022-06-14] MEDS: Insulin LISPRO 300 UNITS/3 ML VIAL SUBQ SCH ×9 (01:41→10:57)
[2022-06-14 06:27] LABS: INR 2.1; Potassium 4.5 mEq/L (3.5-5.1); Prothrombin Time 23.3 Seconds (9.4-12.1)
[2022-06-14 06:34] LABS: Mean Corpuscular HGB Conc 31.2 g/dL (31.6-35.5); Mean Corpuscular Hemoglobin 27.8 pg (28.0-33.3); Platelet Count 130 K/mcL (140-400); Red Blood Count 4.72 M/mcL (4.19-5.50); Red Cell Distribution Width 21.4 % (11.5-14.5); White Blood Count 6.7 K/mcL (4.3-11.1)
[2022-06-14 07:06] LABS: Hemoglobin 13.1 g/dL (12.9-16.9)
[2022-06-14 07:08] VITALS: TEMP 97.6
[2022-06-14] MEDS ORDERED: Insulin Human Regular 10 UNIT in 0.9 % Sodium Chloride 10 ML IV ONE ×2 (07:24→07:45)
[2022-06-14] MEDS ORDERED: D5% in Water 1,000 ML IVC PRN (07:25)
[2022-06-14 10:53] VITALS: BP 148/80; PULSE 84; O2SAT 96
[2022-06-14] MEDS ORDERED: Warfarin perPT PO PRN (18:00)
[2022-06-14] MEDS ORDERED: *HR* Warfarin 2.5 MG TABLET PO ONE (18:00)
[2022-06-14] MEDS ORDERED: Insulin LISPRO 300 UNITS/3 ML VIAL SUBQ SCH (21:00)
== END 2022-06-14 14:20 | disposition home or self-care (01) ==
LOC: EMEROOARM 19:00 → 2ANU 19:00 → SUATTDRO 23:43 → 2ANU 06-14 00:30
PROVIDERS: ADMIT Student in an Organized Health Care Education/Training Program; ATTEND Pharmacist